=== PATIENT | male | born 1940 | race Caucasian/White ===

== ENCOUNTER → 2018-01-16 06:40 | Day surgery (SDC) | payer MEDICARE ==
--- NOTE | 2018-01-08 16:16 | HP ---
CC: ALEXANDER Mina * PREOPERATIVE HISTORY AND PHYSICAL: DATE OF ADMISSION: 01/16/18 [facility] This patient is scheduled for Same Day Surgery admission by Dr. Rodriguez on 01/16/18. ATTENDING SURGEON: Mg Rodriguez MD * (dictated by Jolie Wilson NP). CHIEF COMPLAINT: Left inguinal hernia. HISTORY OF PRESENT ILLNESS: The patient is a 77-year-old male recently evaluated by Dr. Rodriguez for a left inguinal hernia. The patient noted a bulge in the left groin approximately 2 years ago; he denies any pain or any signs or symptoms to suggest incarceration or strangulation. He is very active and walks 2.5 to 3 miles 3 times a week, and also works in a food pantry and lifts up to [address] Rodriguez has examined the patient and notes a soft, nontender reducible left inguinal hernia. He has recommended laparoscopic left inguinal hernia repair with mesh as a Same Day Surgery procedure and has described the nature of the surgery, the rationale for the surgery, the relevant risks and benefits, the use of mesh and today I reviewed the typical postoperative care and recovery. The patient has had a chance to ask questions and stated that he understands the information and is satisfied with the answers given to his questions. He will sign surgical consent on the day of surgery. PAST MEDICAL HISTORY: Limited to low back pain. PAST SURGICAL HISTORY: Tonsillectomy and appendectomy in childhood. MEDICATIONS: 1. Iron supplement 325 mg twice a week. 2. Ginkgo supplement 30 mg every other day. 3. Multivitamin daily. 4. Glucosamine and chondroitin complex 1500 mg 2 tablets daily. The patient will hold the Ginkgo supplement and the glucosamine chondroitin supplement for 5 days preoperatively. ALLERGIES: No known drug allergies. FAMILY HISTORY: No known anesthesia complications, bleeding tendencies, or clotting disorders. SOCIAL HISTORY: He is and is retired, but remains very active; he is a nonsmoker. He drinks two alcoholic beverages per week, and denies the use of other substances. REVIEW OF SYSTEMS: Constitutional: No fevers, chills, excessive fatigue, or weight loss. Endocrine: No diabetes or thyroid disease. Hematologic: No easy bruising or bleeding, no previous blood transfusions. Respiratory: No dyspnea on exertion, no chronic cough. Cardiovascular: No anginal chest pain or palpitations. Gastrointestinal: No nausea, vomiting, diarrhea, GI bleeding , or constipation. Genitourinary: No dysuria. Musculoskeletal: Chronic low back pain. Neurologic: No headache, blurred vision, or areas of focal weakness. General: No previous anesthesia complications. No history of deep vein thrombosis or pulmonary embolism. PHYSICAL EXAMINATION GENERAL SURVEY: The patient is a 77-year-old male, well developed, well nourished, in no acute distress. VITAL SIGNS: Height 69 inches, weight 200 pounds, body mass index 29.5. Blood pressure 128/80, pulse 72 and regular, respiratory rate 18, temperature 98.1 tympanic. HEENT: Benign. NECK: Supple. No cervical lymphadenopathy. BACK: No CVA tenderness. LUNGS: Breath sounds bilaterally clear and equal. HEART: Regular rate and rhythm. No murmurs or rubs appreciated. ABDOMEN: Active bowel sounds. Soft and nondistended. No obvious masses, organomegaly, or evidence of ventral hernia. Inguinal exam as examined by Dr. Rodriguez. Reducible nontender left inguinal hernia. No right inguinal hernia. EXTREMITIES: Warm without edema or skin ulceration. RECTAL: Exam deferred. NEUROLOGIC: Alert and oriented x3, steady gait. SKIN: Warm, dry, intact. IMPRESSION: Left inguinal hernia. PLAN: Same Day Surgery admission to Dr. Rodriguez service on 01/16/18, for laparoscopic left inguinal hernia repair with mesh. DANNY WILSON, JOSY [id number]/[facility] #: [id number] [facility] HOSPITALChristiano
[~2018-01-16 06:40] MED LIST: Acetaminophen TAB* 325 MG PO PRN; Buffered Lidocaine 0.9% SYRIN* 5 ML/SYR SYRINGE INTRADERM ONE; Bupivacaine 0.25% SDV* 30 ML ONE; Dexamethasone IV* 4 MG/ML 1 ML (4 MG) IV SLOW PU ONE; Dexamethasone IV* 4 MG/ML 1 ML (4 MG) ONE; Famotidine IV* 10 MG/ML 2 ML (20 mg) IV ONE; Famotidine IV* 10 MG/ML 2 ML (20 mg) ONE; HYDROmorphone INJ* 1 MG/ML CARPUJECT SYRINGE IV PRN; Heparin VIAL(*) 5000 UNITS/ML VIAL (FIVE THOUSAND) ONE; Ibuprofen TAB* 600 MG PO PRN; Lidocaine 2% PF * 5 ML VIAL ONE; Midazolam* 1 MG/ML 2 ML VIAL (2 MG) ONE; Naloxone* 0.4 MG/ML 1 ML VIAL IV PRN; Ondansetron INJ* 2 MG/ML VIAL IV PRN; Ondansetron INJ* 2 MG/ML VIAL ONE; Propofol* 10 MG/ML 20 ML BTL IV PUSH ONE; Rocuronium* 10 MG/ML VIAL ONE; Scopolamine 1.5 mg* PATCH TRANSDERM PRN; Scopolamine PATCH Remove* 1 NOTE MISC PATCH OFF ONE; Sugammadex * 200 MG/2 ML VIAL IV PUSH ONE; ceFAZolin 2 GM (*##) 2 GM/100 ML BAG USE CEFA2SOL IVPB ONE; diPHENhydraMINE IV* 50 MG/ML 1 ml VIAL (BENADRYL) IV PRN; fentaNYL* 50 MCG/ML 2 ML VIAL (100 MCG VIAL) IV PRN; fentaNYL* 50 MCG/ML 2 ML VIAL (100 MCG VIAL) ONE; oxyCODONE TAB* 5 MG TAB PO PRN; oxyCODONE/Acetamin 5/325 MG* TAB PO PRN
--- NOTE | 2018-01-16 10:22 | OP ---
Operative Report - Blank - Operative Report Date of Operation: 01/16/18 Note: Preop dx: Left inguinal hernia Postop dx: Indirect and direct left inguinal hernia Procedure: Laparoscopic repair of left inguinal hernia with mesh Surgeon: Dr. Rodriguez Assist: Omkar OTTO Anesthesia: GET EBL: minimal Fluids: 1 L LR Specimen: None Drains: None Findings: see dictated operative note.
[2018-01-16 12:07] VITALS: BP 143/91
--- NOTE | 2018-01-17 21:30 | OP ---
CC: ALEXANDER Mina * DATE OF OPERATION: 01/16/18 - SDS DATE OF : 42 SURGEON: Mg Rodriguez MD SET AND EXHIBIT DESIGNER: ALEXANDER Eric ANESTHESIOLOGIST: Dr. Aggarwal. ANESTHESIA: General endotracheal. PRE-OP DIAGNOSIS: Left inguinal hernia. POST-OP DIAGNOSIS: Left inguinal hernia. OPERATIVE PROCEDURE: Laparoscopic preperitoneal repair of left inguinal hernia with mesh. ESTIMATED BLOOD LOSS: Minimal. IV FLUIDS: Crystalloids. SPECIMEN: None. DRAINS: None. COMPLICATIONS: None. COUNTS: The instrument, needle, and sponge counts were correct. DESCRIPTION OF PROCEDURE: The patient was brought to the operating room and placed on table supine. Sequential compression devices were placed on both lower extremities. General anesthesia was administered. López catheter was placed. He was positioned and padded appropriately. Time-out was performed. Local anesthetic was infiltrated into the skin and soft tissue prior to making each incision. The initial incision was infra-umbilical. Subcutaneous tissues were divided with cautery and blunt dissection. Anterior rectus fascia was identified and incised laterally. Underlying muscle was retracted laterally and a preperitoneal balloon dissector was positioned down to the pubic symphysis and then insufflated under direct visualization. The blunt dissection was then removed and replaced with a 12-mm blunt port. Carbon dioxide was insufflated to a pressure of 15 mmHg. Under direct visualization, two 5-mm trocars were placed in the lower abdomen in the midline. Dissection then proceeded from the midline laterally, identifying the presence of the direct inguinal hernia which was reduced. Mil's ligament was identified. The inferior epigastric vessels were identified and preserved anteriorly. The peritoneal sac was identified and was dissected off of the parts of the spermatic cord in the retroperitoneum, dissecting laterally to the anterior superior iliac spine. After completing the dissection, a ProGrip mesh was placed into the preperitoneal space and positioned to cover the direct, indirect , and femoral spaces. The preperitoneal space was then allowed to desufflate with direct visualization of the mesh ensuring it was in good position. The 5- mm ports were removed and a 12-mm port was repositioned into the peritoneum to allow inspection of the peritoneum from within the abdominal cavity. Visualization assured good position of the mesh with no defect in the peritoneum. Carbon dioxide was released. The port was removed and the wound was closed with 0 Polysorb to approximate the posterior and anterior rectus sheath. Skin incisions were closed with 4-0 Monocryl in a subcuticular fashion and Steri- Strips applied. The patient tolerated the procedure well, was extubated and transferred to Recovery in stable condition. [id number]/[facility] #: [id number] MTDD
== END | disposition home or self-care (01) ==
LOC: OR 06:40
PROVIDERS: ATTEND Surgery
DX: K40.90 Unilateral inguinal hernia, without obstruction or gangrene, not specified as recurrent (principal)
CPT/HCPCS: J1100; J1644; J2250; J2405; J2704; J3010

== ENCOUNTER 2022-04-26 05:46 | Observation (INO) ==
[2022-04-26] MEDS ORDERED: Buffered Lidocaine 1% SYRIN 1 ml INTRADERM ONE (06:00)
[2022-04-26] MEDS ORDERED: Lactated Ringers 1000 ml BAG 1,000 ML IV SCH (06:00)
[2022-04-26] MEDS ORDERED: Famotidine IV 10 MG/ML 2 ml VIAL (20 mg) IV ONE (06:00)
[2022-04-26] MEDS ORDERED: Scopolamine 1 mg/72hr PATCH TRANSDERM ONE (06:00)
[2022-04-26] MEDS ORDERED: Scopolamine 1 mg/72hr PATCH ONE (06:10)
[2022-04-26] MEDS ORDERED: ceFAZolin 2 GM in NS PREMIX 2 GM/100 ML BAG IVPB ONE (06:10)
[2022-04-26] MEDS ORDERED: Famotidine IV 10 MG/ML 2 ml VIAL (20 mg) ONE (06:11)
[2022-04-26] MEDS ORDERED: Bupivacaine 0.25% w/EPI 10 ML SDV ONE (07:09)
[2022-04-26] MEDS ORDERED: Phenylephrine IV 10 MG/ML 1 ml VIAL ONE (07:18)
[2022-04-26] MEDS ORDERED: Lidocaine 2% PF 5 ML VIAL ONE (07:18)
[2022-04-26] MEDS ORDERED: Midazolam 2 mg/2 ml VIAL 1 mg/ml 2 ml VIAL (2 mg) ONE (07:21)
[2022-04-26] MEDS ORDERED: Propofol 10 mg/ml 100 ML BTL 100 ML ONE (07:27)
[2022-04-26] MEDS ORDERED: fentaNYL 100 mcg/2 ml 50 MCG/ML VIAL ONE (07:45)
[2022-04-26] MEDS ORDERED: BUPIVACAINE **LIPOSOME/PF 13.3 MG/ML (266MG/ 20ML) VIAL (RESTRICTED) INFIL ONE (08:00)
[2022-04-26] MEDS ORDERED: oxyCODONE/Acetamin 5/325 mg TAB PO PRN (08:27)
[2022-04-26] MEDS ORDERED: Ondansetron 4 mg VIAL 2 MG/ML 2 ml VIAL IV PRN ×2 (08:27→10:28)
[2022-04-26] MEDS ORDERED: fentaNYL 100 mcg/2 ml 50 MCG/ML VIAL IV PRN (08:27)
[2022-04-26] MEDS ORDERED: Ondansetron 4 mg VIAL 2 MG/ML 2 ml VIAL ONE (08:28)
[2022-04-26] MEDS ORDERED: Dexamethasone IV 4 MG/ML VIAL 1 ml VIAL ONE ×2 (08:28→08:32)
[2022-04-26] MEDS ORDERED: Dexmedetomidine 200 mcg/2 ml 2 ml VIAL (200 mcg) ONE (08:32)
[2022-04-26] MEDS ORDERED: ROPIVACAINE 5 MG/ML 30 ML BTL (0.5%) ONE (08:32)
[2022-04-26] MEDS ORDERED: Bupivacaine 0.25% SDV PF 10 ML VIAL INJ ONE (08:32)
[2022-04-26] MEDS ORDERED: Tranexamic Acid 1,000 MG/10 ML SDV ONE (09:52)
[2022-04-26] MEDS ORDERED: Magnesium Hydroxide LIQ 30 ML UDC PO PRN (10:28)
[2022-04-26] MEDS ORDERED: Lactulose 30 ml UDC PO PRN (10:28)
[2022-04-26] MEDS ORDERED: Morphine 2 MG/ML SYRINGE IV PRN (10:28)
[2022-04-26] MEDS ORDERED: Ondansetron ODT 4 mg TAB 4 MG TAB PO PRN (10:28)
[2022-04-26] MEDS ORDERED: oxyCODONE/Acetamin 5/325 mg TAB ONE (11:24)
[2022-04-26] MEDS: Lactated Ringers 1000 ml BAG 1,000 ML IV SCH (12:21)
[2022-04-26] MEDS: ceFAZolin 1 GM ADVAN 1 GM in NS 0.9% 50 ML 50 ML IVPB SCH (17:16)
[2022-04-26] MEDS: Magnesium Hydroxide LIQ 30 ML UDC PO SCH (21:33)
[2022-04-27] MEDS: Lactated Ringers 1000 ml BAG 1,000 ML IV SCH (00:18)
[2022-04-27] MEDS: ceFAZolin 1 GM ADVAN 1 GM in NS 0.9% 50 ML 50 ML IVPB SCH ×2 (00:18→08:14)
[2022-04-27 05:15] LABS: Hematocrit 36 % (42-52); Hemoglobin 12.2 g/dL (14.0-18.0); Mean Platelet Volume 7.3 fL (7.4-10.4); Platelet Count 248 10^3/uL (150-450)
[2022-04-27 05:34] LABS: Calcium 8.3 mg/dL (8.6-10.3); Potassium 4.7 mmol/L (3.5-5.0); eGFR CKD-EPI 88.2 (>60)
[2022-04-27] MEDS: Magnesium Hydroxide LIQ 30 ML UDC PO SCH (08:17)
[2022-04-27] MEDS ORDERED: Vitamin THERAPEUTIC TAB PO SCH (09:00)
[2022-04-27 11:37] VITALS: BP 122/64
== END 2022-04-27 15:55 | disposition home or self-care (01) ==
LOC: OR 05:46 → SSU 05:46
PROVIDERS: ADMIT Orthopaedic Surgery Sports Medicine; ATTEND Orthopaedic Surgery Sports Medicine